=== PATIENT | male | born 1990 | race Caucasian/White ===

== ENCOUNTER 2018-09-02 08:40 | Emergency (ER) | payer OTHER ==
[~2018-09-02] VITALS: Ht 185.4 cm; Wt 110.7 kg
[2018-09-02 08:45] VITALS: Ht 185.4 cm; Wt 110.7 kg
[2018-09-02 09:52] VITALS: BP 121/78
== END 2018-09-02 09:53 | disposition home or self-care (01) ==
LOC: ED 08:40
DX: J45.901 Unspecified asthma with (acute) exacerbation (principal); Z88.5 Allergy status to narcotic agent; Z98.890 Other specified postprocedural states
CPT/HCPCS: J7512; J7613; J7644

== ENCOUNTER 2018-11-02 07:11 | Emergency (ER) | payer MEDICAID ==
[~2018-11-02] VITALS: Ht 185.4 cm; Wt 115.7 kg
[2018-11-02 07:15] VITALS: Ht 185.4 cm; Wt 115.7 kg
[2018-11-02] MEDS ORDERED: PREDNISONE20 MG PO (10:00)
[2018-11-02 10:45] VITALS: BP 113/72
[2018-11-03] MEDS ORDERED: VENTOLIN H0.09 MG/A1 INH (04:21)
[2018-11-03] MEDS ORDERED: ADVAIR DISKUS 51 AER INH (04:22)
== END 2018-11-02 10:45 | disposition home or self-care (01) ==
LOC: ED 07:11
DX: J45.901 Unspecified asthma with (acute) exacerbation (principal); F17.210 Nicotine dependence, cigarettes, uncomplicated; Z88.6 Allergy status to analgesic agent
CPT/HCPCS: J0171; J7512; J7613; J7620; J7644

== ENCOUNTER 2018-11-03 00:19 | Inpatient (IN) | payer MEDICAID ==
[~2018-11-03] VITALS: Ht 185.4 cm; Wt 116.0 kg
[~2018-11-03 00:19] MED LIST: PREDNISONE20 MG PO
[2018-11-03 00:23] VITALS: Ht 185.4 cm; Wt 116.0 kg
[2018-11-03 03:49] LABS: BASOPHIL % 0.3 % (0-2); PLATELET COUNT 233 x10^3mcL (130-400); RED CELL DISTRIBUTION WIDTH 13.2 % (11.5-14.5)
[2018-11-03 03:59] LABS: CALCIUM 8.7 mg/dL (8.5-10.1); CARBON DIOXIDE 28.1 mmol/L (21-32); CHLORIDE SERUM 105 mmol/L (98-107); GFR1 > 60 mL/min; GLUCOSE SERUM 106 mg/dL (74-106); POTASSIUM SERUM 4.2 mmol/L (3.5-5.1); SODIUM SERUM 141 mmol/L (136-145)
[2018-11-03 04:05] LABS: ALBUMIN 3.5 g/dL (3.4-5.0); ALKALINE PHOSPHATASE 95 U/L (46-116); ALT/SGPT 29 U/L (16-63); AST/SGOT 14 U/L (15-37); BILIRUBIN TOTAL 0.1 mg/dL (0.20-1.00); TOTAL PROTEIN, SERUM 6.9 g/dL (6.4-8.2)
[2018-11-03] MEDS ORDERED: VENTOLIN H0.09 MG/A1 INH (04:21)
[2018-11-03 04:22] VITALS: BP 130/60
[2018-11-03] MEDS ORDERED: ADVAIR DISKUS 51 AER INH (04:22)
[2018-11-03 04:31] LABS: MAGNESIUM 1.9 mg/dL (1.8-2.4); PHOSPHOROUS 2.1 mg/dL (2.5-4.9)
[2018-11-03 04:33] LABS: CHOLESTEROL/HDL RATIO 2.5
[2018-11-03 04:53] VITALS: BP 136/77
[2018-11-03 08:47] VITALS: BP 126/68
[2018-11-03 12:19] VITALS: BP 121/64
[2018-11-03 16:10] VITALS: BP 108/54
[2018-11-03 17:44] LABS: microscopic required? NO
[2018-11-03 17:50] LABS: UA SPECIFIC GRAVITY 1.015 (1.005-1.035); urine erythrocyte NEGATIVE (NEGATIVE)
[2018-11-03 17:59] LABS: AMPHETAMINE QUAL UR POSITIVE (See below)
[2018-11-03 21:04] VITALS: BP 118/62
[2018-11-04 05:49] VITALS: BP 125/71
[2018-11-04 07:11] LABS: PLATELET COUNT 273 x10^3mcL (130-400); RED CELL DISTRIBUTION WIDTH 13.6 % (11.5-14.5)
[2018-11-04 07:35] LABS: CALCIUM 8.7 mg/dL (8.5-10.1); CARBON DIOXIDE 26.4 mmol/L (21-32); CHLORIDE SERUM 102 mmol/L (98-107); CREATININE SERUM 0.8 mg/dL (0.7-1.3); GFR1 > 60 mL/min; GLUCOSE SERUM 119 mg/dL (74-106); MAGNESIUM 2.1 mg/dL (1.8-2.4); PHOSPHOROUS 3.8 mg/dL (2.5-4.9); POTASSIUM SERUM 4.2 mmol/L (3.5-5.1); SODIUM SERUM 136 mmol/L (136-145)
[2018-11-04 07:56] LABS: BASOPHIL % 0 % (0-2)
[2018-11-04 09:22] VITALS: BP 123/67
[2018-11-04 14:04] VITALS: BP 110/60
[2018-11-04 17:00] VITALS: BP 126/66
[2018-11-04 20:56] VITALS: BP 114/57
[2018-11-05 05:05] VITALS: BP 122/73
[2018-11-05 09:00] VITALS: BP 125/66
[2018-11-05 12:47] VITALS: BP 144/68
[2018-11-05 16:56] VITALS: BP 114/66
[2018-11-05 20:49] VITALS: BP 119/73
[2018-11-06 05:17] VITALS: BP 114/70
[2018-11-06 06:15] LABS: BASOPHIL % 0 % (0-2); PLATELET COUNT 251 x10^3mcL (130-400); RED CELL DISTRIBUTION WIDTH 13.5 % (11.5-14.5)
[2018-11-06 06:32] LABS: CALCIUM 8.5 mg/dL (8.5-10.1); CARBON DIOXIDE 30.9 mmol/L (21-32); CHLORIDE SERUM 102 mmol/L (98-107); CREATININE SERUM 0.9 mg/dL (0.7-1.3); GFR1 > 60 mL/min; GLUCOSE SERUM 107 mg/dL (74-106); POTASSIUM SERUM 4.3 mmol/L (3.5-5.1); SODIUM SERUM 139 mmol/L (136-145)
[2018-11-06 09:00] VITALS: BP 129/67
[2018-11-06 12:14] VITALS: BP 120/77
[2018-11-06] MEDS ORDERED: MONTELUKAST SOD10 M1 PO (12:31)
[2018-11-06] MEDS ORDERED: PREDNISONE10 MG PO (12:32)
[2018-11-06] MEDS ORDERED: PREDNISONE20 MG PO (12:32)
[2018-11-06 13:05] VITALS: BP 129/67
== END 2018-11-06 13:49 | disposition home or self-care (01) | DRG 141 ==
LOC: ED 00:19 → DU 03:56
PROVIDERS: Emergency Medicine; ADMIT Family Medicine
DX: J45.902 Unspecified asthma with status asthmaticus (principal); J96.01 Acute respiratory failure with hypoxia; F15.10 Other stimulant abuse, uncomplicated; E83.39 Other disorders of phosphorus metabolism; D72.829 Elevated white blood cell count, unspecified; F17.210 Nicotine dependence, cigarettes, uncomplicated; Z68.33 Body mass index [BMI] 33.0-33.9, adult
CPT/HCPCS: 83880; 87804; 90658; J1644; J2920; J2930; J7613; J7620; J7633; Q0092

== ENCOUNTER 2018-12-13 23:55 | Emergency (ER) | payer MEDICAID ==
[~2018-12-13] VITALS: Ht 185.4 cm; Wt 115.2 kg
[~2018-12-13 23:55] MED LIST changes: +ADVAIR DISKUS 51 AER INH; +MONTELUKAST SOD10 M1 PO; +PREDNISONE10 MG PO; +VENTOLIN H0.09 MG/A1 INH
[2018-12-13 23:56] VITALS: Ht 185.4 cm; Wt 115.2 kg
[2018-12-14 02:19] VITALS: BP 125/78
== END 2018-12-14 02:19 | disposition home or self-care (01) ==
LOC: ED 23:55
DX: J45.901 Unspecified asthma with (acute) exacerbation (principal); F17.210 Nicotine dependence, cigarettes, uncomplicated; Z88.6 Allergy status to analgesic agent
CPT/HCPCS: 99406; J7512; J7613; J7644

== ENCOUNTER 2019-04-09 15:14 | Emergency (ER) | payer MEDICAID ==
[~2019-04-09] VITALS: Ht 185.4 cm; Wt 115.2 kg
[2019-04-09 15:21] VITALS: BP 111/94; Ht 185.4 cm; Wt 115.2 kg
== END 2019-04-09 17:22 | disposition home or self-care (01) ==
LOC: ED 15:14
DX: R21 Rash and other nonspecific skin eruption (principal); F15.10 Other stimulant abuse, uncomplicated; J45.909 Unspecified asthma, uncomplicated; R20.0 Anesthesia of skin; Z88.5 Allergy status to narcotic agent

== ENCOUNTER 2019-10-09 05:19 | Emergency (ER) | payer MEDICAID ==
[~2019-10-09] VITALS: Ht 185.4 cm; Wt 126.1 kg
[2019-10-09 05:25] VITALS: Ht 185.4 cm; Wt 126.1 kg
[2019-10-09 06:40] VITALS: BP 117/81
== END 2019-10-09 06:40 | disposition home or self-care (01) ==
LOC: ED 05:19
DX: J45.909 Unspecified asthma, uncomplicated (principal); F17.210 Nicotine dependence, cigarettes, uncomplicated; F12.20 Cannabis dependence, uncomplicated; E66.9 Obesity, unspecified; Z68.36 Body mass index [BMI] 36.0-36.9, adult; Z76.0 Encounter for issue of repeat prescription; Z88.5 Allergy status to narcotic agent
CPT/HCPCS: 99406; J7613; J7644

== ENCOUNTER 2019-10-15 03:52 | Emergency (ER) | payer MEDICAID ==
[~2019-10-15] VITALS: Ht 185.4 cm; Wt 119.7 kg
[2019-10-15 03:55] VITALS: Ht 185.4 cm; Wt 119.7 kg
[2019-10-15 06:42] VITALS: BP 131/85
== END 2019-10-15 06:42 | disposition home or self-care (01) ==
LOC: ED 03:52
DX: J45.901 Unspecified asthma with (acute) exacerbation (principal); F17.200 Nicotine dependence, unspecified, uncomplicated; Z88.5 Allergy status to narcotic agent
CPT/HCPCS: 87804; 99406; J0171; J2930; J3475; J7613; J7644

== ENCOUNTER 2019-11-18 05:59 | Emergency (ER) | payer MEDICAID ==
[~2019-11-18] VITALS: Ht 185.4 cm; Wt 125.4 kg
[2019-11-18 06:03] VITALS: Ht 185.4 cm; Wt 125.4 kg
[2019-11-18 08:27] VITALS: BP 123/73
== END 2019-11-18 08:27 | disposition home or self-care (01) ==
LOC: ED 05:59
DX: J45.901 Unspecified asthma with (acute) exacerbation (principal); Z88.5 Allergy status to narcotic agent
CPT/HCPCS: J2930; J7030; J7613; J7620

== ENCOUNTER 2019-11-19 02:01 | Emergency (ER) | payer MEDICAID ==
[~2019-11-19] VITALS: Ht 185.4 cm; Wt 122.9 kg
[2019-11-19 02:05] VITALS: Ht 185.4 cm; Wt 122.9 kg
[2019-11-19 07:11] VITALS: BP 122/69
[2019-11-20] MEDS ORDERED: TESSALON PERLE100 MG PO (01:28)
[2019-11-20] MEDS ORDERED: TAM75 PO (01:28)
== END 2019-11-19 07:17 | disposition home or self-care (01) ==
LOC: ED 02:01
DX: J10.1 Influenza due to other identified influenza virus with other respiratory manifestations (principal); J45.901 Unspecified asthma with (acute) exacerbation; Z88.5 Allergy status to narcotic agent
CPT/HCPCS: 36600; 87804; J0171; J7030; J7060; J7512; J7613; J7644

== ENCOUNTER 2019-11-19 22:40 | Inpatient (IN) | payer MEDICAID ==
[~2019-11-19] VITALS: Ht 185.4 cm; Wt 126.1 kg
[2019-11-19 22:47] VITALS: Ht 185.4 cm; Wt 126.1 kg
[2019-11-20] VITALS (8 sets, daily range): BP systolic 106–128; BP diastolic 61–84
[2019-11-20 01:21] LABS: ALBUMIN 3.8 g/dL (3.4-5.0); BILIRUBIN TOTAL 0.23 mg/dL (0.20-1.00); CALCIUM 8.6 mg/dL (8.5-10.1); CARBON DIOXIDE 30.5 mmol/L (21-32); CHLORIDE SERUM 101 mmol/L (98-107); GFR1 > 60 mL/min; GLUCOSE SERUM 100 mg/dL (74-106); POTASSIUM SERUM 4.1 mmol/L (3.5-5.1); SODIUM SERUM 139 mmol/L (136-145); TOTAL PROTEIN, SERUM 7.5 g/dL (6.4-8.2)
[2019-11-20 01:22] LABS: ALKALINE PHOSPHATASE 107 U/L (46-116); ALT/SGPT 36 U/L (16-63); AST/SGOT 23 U/L (15-37)
[2019-11-20] MEDS ORDERED: TAM75 PO (01:28)
[2019-11-20] MEDS ORDERED: TESSALON PERLE100 MG PO (01:28)
[2019-11-20 01:35] LABS: BASOPHIL % 0.1 % (0-2); PLATELET COUNT 223 x10^3mcL (130-400); RED CELL DISTRIBUTION WIDTH 13.9 % (11.5-14.5)
[2019-11-20 02:24] LABS: T3 TOTAL 0.84 ng/mL
[2019-11-20 02:27] LABS: CHOLESTEROL/HDL RATIO 2.2; MAGNESIUM 2.1 mg/dL (1.8-2.4); PHOSPHOROUS 2.3 mg/dL (2.5-4.9)
[2019-11-20 02:48] LABS: FREE T4 0.92 ng/dL (0.76-1.46); FREE THYROXINE INDEX 2.8 ug/dL (1.4-4.5); T4(THYROXINE) 7.9 ug/dL (4.7-13.3)
[2019-11-20 04:17] LABS: microscopic required? NO
[2019-11-20 04:24] LABS: UA SPECIFIC GRAVITY 1.015 (1.005-1.035); urine erythrocyte NEGATIVE (NEGATIVE)
[2019-11-20 04:36] LABS: AMPHETAMINE QUAL UR NONE DETECTED (See below)
[2019-11-20 06:53] LABS: PLATELET COUNT 227 x10^3mcL (130-400); RED CELL DISTRIBUTION WIDTH 13.8 % (11.5-14.5)
[2019-11-20 07:14] LABS: CALCIUM 8.7 mg/dL (8.5-10.1); CARBON DIOXIDE 27.3 mmol/L (21-32); CHLORIDE SERUM 103 mmol/L (98-107); CREATININE SERUM 0.9 mg/dL (0.7-1.3); GFR1 > 60 mL/min; GLUCOSE SERUM 125 mg/dL (74-106); SODIUM SERUM 139 mmol/L (136-145)
[2019-11-20 07:22] LABS: BASOPHIL % 0 % (0-2)
[2019-11-21 06:08] VITALS: BP 126/75
[2019-11-21 06:46] LABS: BASOPHIL % 0.2 % (0-2); PLATELET COUNT 242 x10^3mcL (130-400); RED CELL DISTRIBUTION WIDTH 13.6 % (11.5-14.5)
[2019-11-21 06:59] LABS: CHLORIDE SERUM 104 mmol/L (98-107); SODIUM SERUM 140 mmol/L (136-145)
[2019-11-21 07:00] LABS: CALCIUM 8.6 mg/dL (8.5-10.1); CARBON DIOXIDE 28.4 mmol/L (21-32); CREATININE SERUM 0.7 mg/dL (0.7-1.3); GFR1 > 60 mL/min; GLUCOSE SERUM 139 mg/dL (74-106)
[2019-11-21 07:01] LABS: MAGNESIUM 2.3 mg/dL (1.8-2.4); PHOSPHOROUS 3.9 mg/dL (2.5-4.9)
[2019-11-21 08:00] VITALS: BP 114/61
[2019-11-21 12:47] VITALS: BP 145/71
[2019-11-21 17:41] VITALS: BP 136/76
[2019-11-21 21:12] VITALS: BP 128/86
[2019-11-22 05:26] VITALS: BP 108/62
[2019-11-22 06:27] LABS: PLATELET COUNT 262 x10^3mcL (130-400); RED CELL DISTRIBUTION WIDTH 13.8 % (11.5-14.5)
[2019-11-22 06:38] LABS: CALCIUM 8.7 mg/dL (8.5-10.1); CARBON DIOXIDE 29.2 mmol/L (21-32); CHLORIDE SERUM 104 mmol/L (98-107); CREATININE SERUM 0.8 mg/dL (0.7-1.3); GFR1 > 60 mL/min; GLUCOSE SERUM 128 mg/dL (74-106); POTASSIUM SERUM 3.9 mmol/L (3.5-5.1); SODIUM SERUM 140 mmol/L (136-145)
[2019-11-22 06:44] LABS: BASOPHIL % 0 % (0-2)
[2019-11-22 09:09] VITALS: BP 126/76
[2019-11-22] MEDS ORDERED: TAM75 PO (09:53)
[2019-11-22] MEDS ORDERED: VENTOLIN H0.09 MG/A1 INH (09:54)
[2019-11-22] MEDS ORDERED: MONTELUKAST SOD10 M1 PO (09:54)
[2019-11-22] MEDS ORDERED: PREDNISONE20 MG PO (09:56)
[2019-11-22] MEDS ORDERED: PRE20 PO (09:57)
[2019-11-22] MEDS ORDERED: PREDNISONE10 MG PO (09:57)
[2019-11-22] MEDS ORDERED: PREDNISONE5 MG PO (09:58)
[2019-11-22] MEDS ORDERED: SYMBICORT1 AE3 IH (10:05)
[2019-11-22 11:39] VITALS: BP 126/76
[2019-11-22 12:31] VITALS: BP 129/74
== END 2019-11-22 14:00 | disposition home or self-care (01) | DRG 133 ==
LOC: ED 22:40 → MU 11-20 00:11 → EDBEDREQ 11-20 00:11 → DU 11-20 00:11 → MU 11-20 10:12
PROVIDERS: Emergency Medicine; Student in an Organized Health Care Education/Training Program; ADMIT Internal Medicine
DX: J96.00 Acute respiratory failure, unspecified whether with hypoxia or hypercapnia (principal); E83.39 Other disorders of phosphorus metabolism; J45.41 Moderate persistent asthma with (acute) exacerbation; J11.1 Influenza due to unidentified influenza virus with other respiratory manifestations; F15.10 Other stimulant abuse, uncomplicated; F17.210 Nicotine dependence, cigarettes, uncomplicated; Z68.36 Body mass index [BMI] 36.0-36.9, adult
CPT/HCPCS: 84439; 99406; G0378; J0456; J2920; J2930; J7050; J7620

== ENCOUNTER 2020-08-13 09:04 | Emergency (ER) | payer MEDICAID ==
[~2020-08-13] VITALS: Ht 185.4 cm; Wt 131.1 kg
[~2020-08-13 09:04] MED LIST changes: +PRE20 PO; +PREDNISONE5 MG PO; +SYMBICORT1 AE3 IH; +TAM75 PO; +TESSALON PERLE100 MG PO
[2020-08-13 09:12] VITALS: BP 127/82; Ht 185.4 cm; Wt 131.1 kg
== END 2020-08-13 09:44 | disposition home or self-care (01) ==
LOC: ED 09:04
DX: G56.01 Carpal tunnel syndrome, right upper limb (principal); J45.909 Unspecified asthma, uncomplicated; Z88.5 Allergy status to narcotic agent

== ENCOUNTER 2020-11-23 13:14 | Emergency (ER) | payer OTHER, SELFPAY ==
[~2020-11-23] VITALS: Ht 185.4 cm; Wt 122.5 kg
[2020-11-23 13:24] VITALS: BP 127/86
== END 2020-11-23 15:17 | disposition home or self-care (01) ==
LOC: ED 13:14
DX: U07.1 COVID-19 (principal); F15.10 Other stimulant abuse, uncomplicated; F17.210 Nicotine dependence, cigarettes, uncomplicated; J45.909 Unspecified asthma, uncomplicated; Z88.5 Allergy status to narcotic agent
CPT/HCPCS: 99406; U0003